=== PATIENT | male | born 1960 | race Caucasian/White ===

== ENCOUNTER 2018-07-15 18:47 | Observation (INO) | payer BC ==
[2018-07-15] MEDS ORDERED: Sodium Chloride 0.9% 2,000 ML ONE (18:48)
[2018-07-15] MEDS ORDERED: Lidocaine 2% with EPINEPHrine 1:100,000 20 ML MDV ONE (19:33)
[2018-07-15] MEDS: Sodium Chloride 0.9% 1,000 ML IV SCH (20:30)
--- NOTE | 2018-07-15 20:45 | EDM.PDOC ---
ED HPI GENERAL MEDICAL PROBLEM - General Chief Complaint: Laceration Stated Complaint: fell and hit head and it is bleeding Time Seen by Provider: 07/15/18 18:50 Source of Information: Reports: Patient, Family History Limitations: Reports: Altered Mental Status - History of Present Illness INITIAL COMMENTS - FREE TEXT/NARRATIVE: States that he can remember going out to feed the dogs and then he was sitting at the kitchen table and there was blood running down the back of his head. Son was there and he did not remember falling. Son states that there is blood on the steps outside where he had fallen and hit the back of his left head. states that he did bleed excessively coming into [facility]. He was awake at the time. They attempted to put pressure dressing on the back of head but it did continue to bleed. He denied any other injury or pain Location: Reports: Head Quality: Reports: Dull - Related Data Allergies Allergy/AdvReac Type Severity Reaction Status Date / Time Penicillins Allergy Other Verified 07/15/18 20:02 Home Meds: Home Meds Aspirin 325 mg PO DAILY 10/26/14 [History] Clopidogrel Bisulfate [Clopidogrel] 75 mg PO DAILY 10/26/14 [History] Lisinopril/Hydrochlorothiazide [Lisinopril-Hctz 20-25 mg Tab] 1 each PO DAILY [History] atorvaSTATin Calcium [Atorvastatin Calcium] 40 mg PO DAILY 10/26/14 [History] Past Medical History Cardiovascular History: Reports: High Cholesterol, Hypertension Genitourinary History: Reports: Other (See Below) Other Genitourinary History: KIDNEY [place] Neurological History: Reports: TIA Dermatologic History: Reports: Other (See Below) Other Dermatologic History: phlebitis/cellulitis right lower leg - Past Surgical History Musculoskeletal Surgical History: Reports: Arthroscopic Knee, Other (See Below) Social & Family History - Family History Family Medical History: Noncontributory ED ROS GENERAL - Review of Systems Review Of Systems: See Below Constitutional: Reports: No Symptoms Skin: Reports: Wound (posterior left scalp.) Neurological: Reports: Other (does not remember the actual event of falling and hitting head and going into house.). Denies: Confusion, Dizziness, Numbness, Tingling ED EXAM, SKIN/RASH Exam: See Below Text/Narrative:: Airway is open breathing is stable circulation. He did have laceration to the posterior scalp that was actively bleeding and direct pressure and ice were applied and when bleeding slowed was pressured dressed with coban. Bleeding did stop. He did become lightheaded and became sycopal and was laid down and IV times 1 was started as he was very difficult start and multiple staff tried multiple times before one was accessed. Will not start 2nd one at this time as he is now stable. deformity. None. Exposed. Head and back were exposed and no other injury noted to back or neck. He denied any pain to neck or back or chest with exam and palpation. No open areas or bruising noted. Will not do CXR or pelvis xray as no injury to these areas and pt is alert and oriented to accurately convey this. GCS is 15. Exam Limited By: No Limitations General Appearance: Alert, Mild Distress Eye Exam: Bilateral Eye: PERRL (4mm and equal.) Ears: Normal External Exam, Normal Canal Nose: Normal Inspection Throat/Mouth: Normal Inspection, Normal Oropharynx, No Airway Compromise Head: Normocephalic Neck: Normal Inspection, Supple, Non-Tender, Full Range of Motion Respiratory/Chest: No Respiratory Distress, Lungs Clear, Normal Breath Sounds, Chest Non-Tender Cardiovascular: Regular Rate, Rhythm, No Edema Back Exam: Normal Inspection, Full Range of Motion Extremities: Normal Inspection, Normal Range of Motion, Normal Capillary Refill Neurological: Alert, Oriented, CN II-XII Intact, Normal Cognition, No Motor/ Sensory Deficits Psychiatric: Normal Affect Skin: Warm, Dry, Intact Location, Skin: Head ED SKIN PROCEDURES - Laceration/Wound Repair Left Posterior Occipital Head Lac/Wound length In cm: 6.5 Appearance: Irregular, Clean Anesthetic Type: Local Local Anesthesia - Lidocaine (Xylocaine): 2% with EPI Local Anesthetic Volume: 5cc Closed with: Sutures Suture Size: 4-0 # of Sutures: 9 Suture Type: Nylon, Interrupted, Simple Left Occipital Head Lac/Wound length In cm: 3 (superior to other laceration) Appearance: Irregular Anesthetic Type: Local Local Anesthesia - Lidocaine (Xylocaine): 2% with EPI Local Anesthetic Volume: Other (total used in both lacerations was 5 cc.) Exploration/Debridement/Repair: No Foreign Material Found Closed with: Sutures Suture Size: 4-0 # of Sutures: 5 Suture Type: Interrupted, Simple Course - Orders/Labs/Meds Orders: Active Orders 24 hr Category Date Time Status Head wo Cont [CT] Routine Exams 07/15/18 Taken Labs: Laboratory Tests 07/15/18 Range/Units 18:55 WBC 15.3 H (5.0-10.0) 10^3/uL RBC 5.76 (4.50-6.00) 10^6/uL Hgb 16.7 (14.0-18.0) g/dL Hct 47.0 (40.0-54.0) % MCV 81.6 L (82.0-94.0) fL MCH 29.0 (27.0-32.0) pg MCHC 35.5 (33.0-38.0) g/dL RDW Coeff of Hill 14.2 (11.0-15.0) % Plt Count 265 (150-400) 10^3/uL Add Manual Diff Yes Neutrophils % (Manual) 67 (35-85) % Band Neutrophils % 1 (0-5) % Lymphocytes % (Manual) 20 L (21-55) % Monocytes % (Manual) 4 (2-12) % Eosinophils % (Manual) 6 H (0-5) % Basophils % (Manual) 2 (0-3) % Absolute Neutrophils 10.40 H (1.80-7.00) 10^3/uL Lymphocytes # (Manual) 3.06 (1.00-4.80) 10^3/uL Monocytes # (Manual) 0.61 (0.00-0.80) 10^3/uL Eosinophils # (Manual) 0.92 H (0.00-0.45) 10^3/uL Basophils # (Manual) 0.31 10^3/uL Meds: Medications Discontinued Medications Generic Name Dose Route Start Last Admin Trade Name Rizwan PRN Reason Stop Dose Admin Sodium Chloride Confirm 07/15/18 18:48 Normal Saline Administered 07/15/18 18:49 Dose 2,000 mls @ as directed .ROUTE .STK-MED ONE Lidocaine/Epinephrine Confirm 07/15/18 19:33 Xylocaine 2% With Epinephrine 1:100,000 Administered 07/15/18 19:34 Dose 20 ml .ROUTE .STK-MED ONE - Re-Assessments/Exams Free Text/Narrative Re-Assessment/Exam: 07/15/18 20:30 Discussed with pt, and son that CT of head is negative for any bleed. Due to the brief LOC at the time of injury and becoming syncopal and hypotensive for short time he will be admitted observation to Dr. Mckeon and do neuro checks and monitor BP during the night. Will continue with the IV until AM. Departure - Departure Time of Disposition: 21:18 Disposition: Refer to Observation Condition: Good Clinical Impression: Fall from slipping on ice Qualifiers: Encounter type: initial encounter Qualified Code(s): W00.9XXA - Unspecified fall due to ice and snow, initial encounter Laceration of head Qualifiers: Encounter type: initial encounter Location of open wound of head: scalp Foreign body presence: without foreign body Qualified Code(s): S01.01XA - Laceration without foreign body of scalp, initial encounter - Discharge Information *PRESCRIPTION DRUG MONITORING PROGRAM REVIEWED*: Not Applicable *COPY OF PRESCRIPTION DRUG MONITORING REPORT IN PATIENT ESTHELA: Not Applicable Referrals: PCP,None [Primary Care Provider] - Forms: ED Department Discharge - Problem List & Annotations (1) Laceration of head SNOMED Code(s): 523592872 Code(s): S01.91XA - LACERATION W/O FOREIGN BODY OF UNSP PART OF HEAD, INIT Status: Acute Priority: High Current Visit: Yes Qualifiers: Encounter type: initial encounter Location of open wound of head: scalp Foreign body presence: without foreign body Qualified Code(s): S01.01XA - Laceration without foreign body of scalp, initial encounter (2) Fall from slipping on ice SNOMED Code(s): 744946541 Code(s): W00.9XXA - UNSPECIFIED FALL DUE TO ICE AND SNOW, INITIAL ENCOUNTER Status: Acute Priority: Low Current Visit: Yes Qualifiers: Encounter type: initial encounter Qualified Code(s): W00.9XXA - Unspecified fall due to ice and snow, initial encounter - Problem List Review Problem List Initiated/Reviewed/Updated: Yes - My Orders Last 24 Hours: My Active Orders 07/15/18 Head wo Cont [CT] Routine - Assessment/Plan Admission H&P: Please use this note as an admission H&P Last 24 Hours: My Active Orders 07/15/18 Head wo Cont [CT] Routine Plan: Dr. mckeon notified of pt and admission to observation and agrees with treament and plan of care.
[2018-07-15] MEDS ORDERED: Acetaminophen 325 MG Tab PO PRN (21:48)
[2018-07-15] MEDS ORDERED: Sodium Chloride 0.9% 10 ML Syringe FLUSH PRN (21:48)
[2018-07-15] MEDS ORDERED: Ondansetron 4 MG Tab.DIS PO PRN (21:48)
[2018-07-16] MEDS: Sodium Chloride 0.9% 1,000 ML IV SCH (06:16)
[2018-07-16] MEDS ORDERED: Aspirin 325 MG Tab PO SCH (08:00)
[2018-07-16] MEDS ORDERED: atorvaSTATin 20 MG Tab PO SCH (08:00)
[2018-07-16] MEDS ORDERED: Hydrochlorothiazide 25 MG Tab PO SCH (08:00)
[2018-07-16] MEDS ORDERED: Clopidogrel 75 MG Tab PO SCH (08:00)
[2018-07-16] MEDS ORDERED: Lisinopril 20 MG Tab PO SCH (08:00)
[2018-07-16 11:38] VITALS: BP 110/80
--- NOTE | 2018-07-16 18:59 | PCM.DCSUM1 ---
Discharge Summary - Hospital Course Free Text/Narrative:: Patient presented to ER after a fall. Patient states he recalls going out to feed the dogs and the next thing he knew he was sitting at the kitchen table, bleeding from the back of his head. Family relates he slipped and fell on the sidewalk and hit the back of his head. Did sustain a laceration to the back of his head and was bleeding considerably at home and enroute to our facility, is on Plavix. CT scan of the head was done in ER which was negative. HE did have a syncopal episode in the ER so opted to admit for ongoing observation and neuro checks. Patient had several sutures placed to posterior scalp. Diagnosis: Stroke: No Modified [place] Scale: No Symptoms at All Modified [place] Scale Score: 0 - Discharge Data Discharge Date: 07/16/18 Discharge Disposition: Home, Self-Care 01 Condition: Good - Patient Summary/Data Complications: none Hospital Course: Patient has done well overnight. Neuro checks have been normal. He has had continual oozing from the laceration site. No nausea. Appetite good this am. Up and ambulating without concern. Discharge home - Patient Instructions Diet: Usual Diet as Tolerated Activity: As Tolerated - Discharge Plan *PRESCRIPTION DRUG MONITORING PROGRAM REVIEWED*: Not Applicable *COPY OF PRESCRIPTION DRUG MONITORING REPORT IN PATIENT ESTEHLA: Not Applicable Home Medications: Home Meds Aspirin 325 mg PO DAILY 10/26/14 [History] Clopidogrel Bisulfate [Clopidogrel] 75 mg PO DAILY 10/26/14 [History] Lisinopril/Hydrochlorothiazide [Lisinopril-Hctz 20-25 mg Tab] 1 each PO DAILY [History] atorvaSTATin Calcium [Atorvastatin Calcium] 40 mg PO DAILY 10/26/14 [History] Forms: ED Department Discharge Referrals: Jori Mckeon MD [ED Physician] - (Hospital follow up in 10 days Suture removal at that time ) - Discharge Summary/Plan Comment DC Time >30 min.: No Discharge Summary/Plan Comment: Discharge home Return to see Dr. mckeon in 10 days, suture removal at that time - General Info Date of Service: 07/16/18 Admission Dx/Problem (Free Text: Closed Head Injury with laceration Functional Status: Reports: Pain Controlled, Tolerating Diet, Ambulating - Review of Systems General: Reports: No Symptoms HEENT: Denies: Headaches Pulmonary: Reports: No Symptoms Cardiovascular: Reports: No Symptoms Gastrointestinal: Denies: Nausea, Vomiting Genitourinary: Reports: No Symptoms Musculoskeletal: Denies: Neck Pain Skin: Reports: Other (bleeding from scalp) Neurological: Denies: Dizziness, Headache - Patient Data Vitals - Most Recent: Last Vital Signs Temp 98.8 F 07/16/18 08:00 Pulse 78 07/16/18 08:00 Resp 16 07/16/18 08:00 BP 110/80 07/16/18 08:00 Pulse Ox 94 L 07/16/18 08:00 Weight - Most Recent: 350 lb I&O - Last 24 hours: Intake & Output 07/16/18 07/16/18 07/16/18 06:59 14:59 22:59 Intake Total 977 Balance 977 Lab Results - Last 24 hrs: Laboratory Results - last 24 hr 07/15/18 07/16/18 Range/Units 18:55 07:10 WBC 15.3 H 10.9 H (5.0-10.0) 10^3/uL RBC 5.76 4.63 (4.50-6.00) 10^6/uL Hgb 16.7 13.5 L (14.0-18.0) g/dL Hct 47.0 38.7 L (40.0-54.0) % MCV 81.6 L 83.6 (82.0-94.0) fL MCH 29.0 29.2 (27.0-32.0) pg MCHC 35.5 34.9 (33.0-38.0) g/dL RDW Coeff of Hill 14.2 14.3 (11.0-15.0) % Plt Count 265 213 (150-400) 10^3/uL Neut % (Auto) 61.9 (35-85) % Lymph % (Auto) 27.0 (10-55) % [place] % (Auto) 8.3 (0-16) % Eos % (Auto) 2.1 (0-5) % Baso % (Auto) 0.7 (0-3) % Neut # (Auto) 6.75 (1.80-7.00) 10^3/uL Lymph # (Auto) 2.94 (1.00-4.80) 10^3/uL [place] # (Auto) 0.90 H (0.00-0.80) 10^3/uL Eos # (Auto) 0.23 (0.00-0.45) 10^3/uL Baso # (Auto) 0.08 10^3/uL Add Manual Diff Yes Neutrophils % (Manual) 67 (35-85) % Band Neutrophils % 1 (0-5) % Lymphocytes % (Manual) 20 L (21-55) % Monocytes % (Manual) 4 (2-12) % Eosinophils % (Manual) 6 H (0-5) % Basophils % (Manual) 2 (0-3) % Absolute Neutrophils 10.40 H (1.80-7.00) 10^3/uL Lymphocytes # (Manual) 3.06 (1.00-4.80) 10^3/uL Monocytes # (Manual) 0.61 (0.00-0.80) 10^3/uL Eosinophils # (Manual) 0.92 H (0.00-0.45) 10^3/uL Basophils # (Manual) 0.31 10^3/uL Med Orders - Current: Current Medications Discontinued Medications Acetaminophen (Tylenol) 650 mg PO Q4H PRN PRN Reason: Pain (Mild 1-3)/fever Last Admin: 07/16/18 04:26 Dose: 650 mg Aspirin (Aspirin) 325 mg PO DAILY [facility] Atorvastatin Calcium (Lipitor) 40 mg PO DAILY [facility] Clopidogrel Bisulfate (Plavix) 75 mg PO DAILY [facility] Hydrochlorothiazide (Hydrochlorothiazide) 25 mg PO DAILY [facility] Sodium Chloride (Normal Saline) Confirm Administered Dose 2,000 mls @ as directed .ROUTE .STK-MED ONE Stop: 07/15/18 18:49 Sodium Chloride (Normal Saline) 1,000 mls @ 100 mls/hr IV ASDIRECTED [facility] Last Admin: 07/16/18 06:16 Dose: 100 mls/hr Lidocaine/Epinephrine (Xylocaine 2% With Epinephrine 1:100,000) Confirm Administered Dose 20 ml .ROUTE .STK-MED ONE Stop: 07/15/18 19:34 Lisinopril (Prinivil) 20 mg PO DAILY [facility] Ondansetron HCl (Zofran Odt) 4 mg PO Q4H PRN PRN Reason: nausea, able to take PO Sodium Chloride (Saline Flush) 10 ml FLUSH ASDIRECTED PRN PRN Reason: Keep Vein Open - Exam General: Reports: Alert, Oriented HEENT: Reports: Mucous Membr. Moist/[place] Neck: Reports: Supple Lungs: Reports: Clear to Auscultation, Normal Respiratory Effort Cardiovascular: Reports: Regular Rate, Regular Rhythm GI/Abdominal Exam: Normal Bowel Sounds, Soft, Non-Tender Skin: Reports: Warm, Dry Neurological: Reports: No New Focal Deficit
== END 2018-07-16 08:25 | disposition home or self-care (01) ==
LOC: CC.ED 18:47 → OBSVTOIN 20:50 → CC.MS 20:50 → INTOOBSV 20:50 → UNDOADMOB 20:50 → CC.MS 21:21
PROVIDERS: ADMIT Physician Assistant Medical; ATTEND Family Medicine
DX: S01.01XA Laceration without foreign body of scalp, initial encounter (principal); I10 Essential (primary) hypertension; E78.00 Pure hypercholesterolemia, unspecified; Z86.73 Personal history of transient ischemic attack (TIA), and cerebral infarction without residual deficits; Z79.82 Long term (current) use of aspirin; W00.9XXA Unspecified fall due to ice and snow, initial encounter; Z79.899 Other long term (current) drug therapy
CPT/HCPCS: 36415; 40830; 70450; 85025; 96360; 96361; 99285; A9270; G0378; J7030